=== PATIENT | female | born 2000 | race Caucasian/White ===

== ENCOUNTER 2024-10-10 11:19 | Inpatient (IN) | payer OTHER ==
[~2024-10-10] VITALS: Ht 157.5 cm; Wt 117.2 kg
[2024-10-10] MEDS ORDERED: PRENTAB9 PO (11:53)
[2024-10-10] MEDS ORDERED: TUMS500C PO (11:53)
[2024-10-10] MEDS ORDERED: HOME MED LIST COMPLETE! XX SCH (11:55)
[2024-10-10] MEDS ORDERED: CARBOPROST TROMETHAMINE 250 MCG/ML AMP IM PRN (12:15)
[2024-10-10] MEDS ORDERED: OXYTOCIN DRIP 30 UNITS in IV 1 EA IV PRN (12:15)
[2024-10-10] MEDS ORDERED: TRANEXAMIC ACID INJection 1,000 MG in NS 100 ML IV PRN (12:15)
[2024-10-10] MEDS ORDERED: LR 1,000 ML IV SCH (12:15)
[2024-10-10] MEDS ORDERED: METHYLERGONOVINE MALEATE 0.2MG/ML 1ML VIAL IM PRN (12:15)
[2024-10-10] MEDS ORDERED: LIDOCAINE 1% MDV 20ML VIAL INFIL PRN (12:15)
[2024-10-10 13:15] LABS: HEMATOCRIT 31.8 % (36.0-47.0); MEAN CORPUSCULAR HEMOGLOBIN 25.8 pg (27.0-33.0); MEAN CORPUSCULAR HGB CONC 31.4 g/dl (32.0-36.5); MEAN CORPUSCULAR VOLUME 82.2 fl (80.0-96.0); PLATELET COUNT, AUTOMATED 250 10^3/uL (150-450); RED BLOOD COUNT 3.87 10^6/uL (4.00-5.40); WHITE BLOOD COUNT 8.4 10^3/uL (4.0-10.0)
[2024-10-10 13:35] LABS: TOTAL PROTEIN,RANDOM URINE 37.9 MG/DL (0.0-14.0)
[2024-10-10 13:39] LABS: LDH LACTATE DEHYDROGENASE 191 U/L (120-246)
[2024-10-10 13:40] LABS: ALT/SGPT 11 U/L (7.0-40); AST/SGOT 13 U/L (<34); BILIRUBIN,TOTAL < 0.2 MG/DL (0.3-1.2); CREATININE FOR GFR 0.52 MG/DL (0.55-1.30); CREATININE,RANDOM URINE 120.6 MG/DL; GLOMERULAR FILTRATION RATE > 90.0 (>60)
[2024-10-10] MEDS ORDERED: **NOTE PATIENT COMMENT** MISC XX SCH (14:10)
[2024-10-10] MEDS ORDERED: NALOXONE INJ 0.4MG/1ML VIAL IV PRN ×2 (14:10)
[2024-10-10] MEDS ORDERED: diphenhydrAMINE 50MG/ML VIAL IV PRN ×2 (14:10)
[2024-10-10] MEDS ORDERED: oxyCODONE 5MG TAB PO PRN (14:10)
[2024-10-10] MEDS ORDERED: fentaNYL 100 MCG/2 ML INJECTION IV PRN (14:10)
[2024-10-10 14:13] LABS: HIV 1&2 SCREEN NEGATIVE (NEGATIVE)
[2024-10-10 14:21] LABS: HEPATITIS C VIRUS ABY INDEX 0.02 INDEX (<0.8)
[2024-10-10] MEDS ORDERED: MORPHINE PRES-FREE INJ 10 MG/10 ML VIAL As Ordered ONE (14:28)
[2024-10-10] MEDS: BICITRA 30ML SOLN UDC PO ONE (14:49)
[2024-10-10] MEDS: ceFAZolin SODIUM 2 GM in DEXTROSE 5% (D5W) ADV/MINI-BAG 50 ML IV ONE (14:49)
[2024-10-10 14:50] LABS: URIC ACID 5.2 MG/DL (3.1-7.8)
[2024-10-10] MEDS: LACTATED RINGER'S 1000 ML IV STA (14:50)
[2024-10-10] MEDS ORDERED: PHENYLephrine 500MCG 5ML (100MCG/ML) SYRINGE As Ordered ONE (15:24)
[2024-10-10] MEDS ORDERED: ACETAMINOPHEN 1000MG/100ML IV BAG As Ordered ONE (15:33)
[2024-10-10] MEDS ORDERED: ONDANSETRON 4MG 2ML VIAL As Ordered ONE (15:39)
[2024-10-10] MEDS ORDERED: OXYTOCIN 30UNITS IN 0.9% NaCl 500ML IV BAG As Ordered ONE (16:09)
[2024-10-10] MEDS ORDERED: RHOGAM 300MCG (1500IU) INJ IM SCH (16:30)
[2024-10-10] MEDS ORDERED: SIMETHICONE 80MG CHEW TAB PO PRN (16:30)
[2024-10-10] MEDS ORDERED: ONDANSETRON 4MG 2ML VIAL IV PRN (16:30)
[2024-10-10] MEDS ORDERED: MOM 30ML SUSPENSION UDC PO PRN (16:30)
[2024-10-10] MEDS ORDERED: CALCIUM CARBONATE 500 MG CHEW U/D PO PRN (16:30)
[2024-10-10] MEDS ORDERED: METOCLOPRAMIDE INJ 10MG/2ML VIAL IV ONE (16:40)
[2024-10-10] MEDS ORDERED: METOCLOPRAMIDE INJ 10MG/2ML VIAL As Ordered ONE (16:42)
[2024-10-10] MEDS: METOCLOPRAMIDE INJ 10MG/2ML VIAL IV ONE (16:43)
[2024-10-10] MEDS: OXYTOCIN DRIP 30 UNITS in IV 1 EA IV SCH (17:07)
[2024-10-10] MEDS: LR 1,000 ML IV SCH (17:07)
[2024-10-10 17:45] VITALS: BP 152/71; O2SAT 96
[2024-10-10 18:30] VITALS: BP 138/76; O2SAT 97
[2024-10-10 19:00] VITALS: BP 126/74; O2SAT 98
[2024-10-10] MEDS: SLF 3 ML SYR IV SCH (19:26)
[2024-10-10 20:00] VITALS: BP 139/77; O2SAT 96
[2024-10-10 21:00] VITALS: BP 130/74; O2SAT 97
[2024-10-10] MEDS: DOCUSATE SODIUM 100MG CAPSULE PO SCH (21:00)
[2024-10-10] MEDS: KETOROLAC 30 MG/ML 1ML VIAL IV SCH (21:32)
[2024-10-10] MEDS: ONDANSETRON 4MG 2ML VIAL IV PRN (21:32)
[2024-10-11] MEDS: diphenhydrAMINE 50MG/ML VIAL IV PRN (01:51)
[2024-10-11 02:00] VITALS: BP 122/66; O2SAT 98
[2024-10-11 06:00] VITALS: BP 118/63; O2SAT 98
[2024-10-11] MEDS: LR 500 ML IV ONE (06:15)
[2024-10-11 07:12] LABS: HEMATOCRIT 29.9 % (36.0-47.0); HEMOGLOBIN 9.3 g/dl (12.0-15.5); MEAN CORPUSCULAR HEMOGLOBIN 25.5 pg (27.0-33.0); MEAN CORPUSCULAR HGB CONC 31.1 g/dl (32.0-36.5); MEAN CORPUSCULAR VOLUME 82.1 fl (80.0-96.0); PLATELET COUNT, AUTOMATED 237 10^3/uL (150-450); RED BLOOD COUNT 3.64 10^6/uL (4.00-5.40); WHITE BLOOD COUNT 13.6 10^3/uL (4.0-10.0)
[2024-10-11] MEDS: PRENATAL VITAMINS CHEWABLE TABLET PO SCH (08:57)
[2024-10-11] MEDS: FERROUS SULFATE 325MG TAB PO SCH (08:57)
[2024-10-11 10:00] VITALS: BP 114/61; O2SAT 97
[2024-10-11] MEDS: PERCOCET 5MG/325MG TAB PO PRN ×2 (12:03→23:49)
[2024-10-11 14:00] VITALS: BP 103/59; O2SAT 96
[2024-10-11 18:00] VITALS: BP 103/59; O2SAT 99
[2024-10-11] MEDS: IBUPROFEN 800 MG TAB PO SCH (18:38)
[2024-10-11 22:30] VITALS: BP 113/61; O2SAT 98
[2024-10-12 02:06] VITALS: BP 124/73; O2SAT 98
[2024-10-12] MEDS ORDERED: IBUP80TA PO (02:50)
[2024-10-12] MEDS ORDERED: COLA100C5 PO (02:50)
[2024-10-12 05:56] VITALS: BP 112/71; O2SAT 98
[2024-10-12 08:19] VITALS: TEMP 98.4
[2024-10-12] MEDS: FLUZONE VACCINE TRIVALENT PF(2024-25) 0.5ML SYRINGE IM.IMMUN ONE (08:58)
[2024-10-12] MEDS: MEASLES,MUMPS,RUBELLA VACCINE INJ (MMR-II) SC.IMMUN ONE (09:00)
[2024-10-12 10:00] VITALS: BP 112/59; O2SAT 99
== END 2024-10-12 14:17 | disposition home or self-care (01) | DRG 773 ==
LOC: M LDO 11:19 → M LDI 12:15 → M OBS 17:44
PROVIDERS: ADMIT Advanced Practice Midwife; ATTEND Advanced Practice Midwife
PROC: 10D00Z1 Extraction of Products of Conception, Low, Open Approach (ICD-10-PCS; principal; 2024-10-10 15:00)
DX: O13.4 Gestational [pregnancy-induced] hypertension without significant proteinuria, complicating childbirth (principal); Z37.0 Single live birth; Z3A.38 38 weeks gestation of pregnancy; O24.429 Gestational diabetes mellitus in childbirth, unspecified control; O09.33 Supervision of pregnancy with insufficient antenatal care, third trimester

== ENCOUNTER 2025-01-26 08:43 | Emergency (ER) | payer OTHER ==
[~2025-01-26] VITALS: Ht 157.5 cm; Wt 109.1 kg
[~2025-01-26 08:43] MED LIST: COLA100C5 PO; IBUP80TA PO; PRENTAB9 PO; TUMS500C PO
[2025-01-26 10:38] VITALS: TEMP 98.9
[2025-01-26 12:07] LABS: BASO # 0.1 10^3/uL (0.0-0.2); BASO % 1.2 % (0.0-1.0); EOS # 0.2 10^3/uL (0.0-0.5); EOS % 2.5 % (0.0-3.0); LYMPH # 3.4 10^3/uL (1.5-5.0); LYMPH % 38.0 % (24.0-44.0); MONO # 0.6 10^3/uL (0.0-0.8); MONO % 6.9 % (2.0-8.0); NEUTROPHILS # 4.5 10^3/uL (1.5-8.5); NEUTROPHILS % 51.3 % (36.0-66.0); PLATELET COUNT, AUTOMATED 350 10^3/uL (150-450)
[2025-01-26 12:29] LABS: HCG, SERUM QUANTITATIVE < 2.6 MIU/ML (<4.2)
[2025-01-26 12:32] LABS: CALCIUM LEVEL 9.5 MG/DL (8.5-10.1); CARBON DIOXIDE LEVEL 25 MMOL/L (20-31); CHLORIDE LEVEL 110 MMOL/L (98-107); CREATININE FOR GFR 0.71 MG/DL (0.55-1.30); GLOMERULAR FILTRATION RATE > 90.0 (>60); POTASSIUM SERUM 4.6 MMOL/L (3.5-5.1); SODIUM LEVEL 146 MMOL/L (136-145)
[2025-01-26 12:41] LABS: HCG, SERUM QUALITATIVE NEGATIVE (NEGATIVE)
[2025-01-26 13:30] LABS: Trichomonas vaginalis (AMP) NOT DETECTED (NEGATIVE)
[2025-01-26 13:54] LABS: GC DNA AMPLIFICATION NEGATIVE (NEGATIVE)
[2025-01-26 13:58] VITALS: O2SAT 98
[2025-01-26 14:13] VITALS: BP 138/94
== END 2025-01-26 14:48 | disposition home or self-care (01) ==
LOC: M ED 08:43
DX: N92.0 Excessive and frequent menstruation with regular cycle (principal); F41.9 Anxiety disorder, unspecified; F32.A Depression, unspecified; G40.A09 Absence epileptic syndrome, not intractable, without status epilepticus